=== PATIENT | male | born 1960 | race Caucasian/White ===

== ENCOUNTER → 2016-11-18 | Outpatient (CLI) | payer MEDICARE ==
[~2016-11-18] MED LIST: ASPIRIN EC81 MG PO; BRILINTA 90 MG90 MG PO; CARAFATE 1 GM TA1 GM PO; DEXILANT60 MG PO; FISH OIL 1,2001 EACH PO; HUMALOG100 UNIT/1 SC; IMDUR ER TAB 6060 MG PO; K-DUR TAB 20 M20 MEQ PO; LANTUS100 UNIT/1 SC; LASIX40 MG PO; LOPRESSOR 25 MG25 MG PO; MIRALAX17 GM PO; NEURONTIN 300300 MG PO; NITROGLYCERIN0.4 MG SL; NORVASC 5 MG TAB5 MG PO; OMEPRAZOLE40 MG PO; RANEXA1000 MG PO; SEN PO; VITAMIN D31000 UNI1 PO; ZANAFLEX4 MG PO; ZANTAC300 MG PO; ZESTRIL2.5 MG PO; [UNRECOGNIZED DRUG - OTHER] PO
== END ==
LOC: US 12:00
DX: N17.9 Acute kidney failure, unspecified (principal)

== ENCOUNTER 2020-09-08 19:59 | Emergency (ER) | payer MEDICARE ==
[~2020-09-08 19:59] MED LIST changes: +BACTRIM DS TAB1 EACH PO; +BENTYL 10MG CAP10 MG PO; +DESYREL 50 MG T50 MG PO; +DOCUSATE SODIU100 MG PO; +DOXEPIN HCL25 MG PO; +ELAVIL 25 MG TA25 MG PO; +FLONASE 0.05% N16 GM; +GAS RELIEF125 MG PO; +GAVISCON EXTRA355 ML PO; +LEVAQUIN500 MG PO; -NEURONTIN 300300 MG PO; +NEURONTIN 800 MG PO; +PEPTO-BISMOL262 MG PO; +SYNTHROID50 MCG PO; +TUMS200 MG PO; +TYLENOL 500 MG500 MG PO; +VESCEPA; +ZESTRIL10 MG PO; +ZITHROMAX250 MG PO; +ZOCOR10 MG PO
[2020-09-08 21:38] LABS: HEMOGLOBIN 11.7 gm/dl (14.0-17.5); RED BLOOD COUNT 3.54 M/UL (4.20-5.50); WHITE BLOOD COUNT 9.4 K/UL (4.5-11.0)
[2020-09-08 21:55] LABS: BUN/CREATININE RATIO 21 (0-10)
[2020-09-09] MEDS ORDERED: MYLANTA MAXIMU355 ML PO (00:13)
== END 2020-09-09 00:15 | disposition home or self-care (01) ==
LOC: ER1 19:59
PROVIDERS: Family Medicine
DX: I10 Essential (primary) hypertension (principal); R09.81 Nasal congestion; Z79.899 Other long term (current) drug therapy
CPT/HCPCS: 70220; 71046; 80053; 82550; 82553; 83874; 84484; 85025; 93005; 99284

== ENCOUNTER 2021-09-16 08:10 | Emergency (ER) | payer MEDICARE ==
[~2021-09-16 08:10] MED LIST changes: +MYLANTA MAXIMU355 ML PO
[2021-09-16 09:38] LABS: HEMOGLOBIN 12.9 gm/dl (14.0-17.5); RED BLOOD COUNT 4.15 M/UL (4.20-5.50); WHITE BLOOD COUNT 6.1 K/UL (4.5-11.0)
[2021-09-16 10:08] LABS: BUN/CREATININE RATIO 13 (0-10)
== END 2021-09-16 12:24 | disposition home or self-care (01) ==
LOC: ER1 08:10
PROVIDERS: Nurse Practitioner
DX: R07.89 Other chest pain (principal); E11.9 Type 2 diabetes mellitus without complications; Z79.4 Long term (current) use of insulin; I25.10 Atherosclerotic heart disease of native coronary artery without angina pectoris; I10 Essential (primary) hypertension; K21.9 Gastro-esophageal reflux disease without esophagitis; E11.40 Type 2 diabetes mellitus with diabetic neuropathy, unspecified; Z79.82 Long term (current) use of aspirin
CPT/HCPCS: 71045; 80048; 81001; 82550; 82553; 83874; 83880; 84484; 85025; 93005; 99285

== ENCOUNTER 2021-10-20 15:32 | Emergency (ER) | payer MEDICARE ==
[2021-10-20 17:50] LABS: HEMOGLOBIN 13.2 gm/dl (14.0-17.5); RED BLOOD COUNT 4.13 M/UL (4.20-5.50); WHITE BLOOD COUNT 7.1 K/UL (4.5-11.0)
[2021-10-20 18:33] LABS: BUN/CREATININE RATIO 13 (0-10)
[2021-10-20] MEDS ORDERED: XYLOCAINE VISC100 ML PO (19:16)
== END 2021-10-20 20:29 | disposition home or self-care (01) ==
LOC: ER1 15:32
PROVIDERS: Emergency Medicine
DX: K21.00 Gastro-esophageal reflux disease with esophagitis, without bleeding (principal); I10 Essential (primary) hypertension; E11.9 Type 2 diabetes mellitus without complications; Z95.5 Presence of coronary angioplasty implant and graft
CPT/HCPCS: 71045; 80053; 82550; 82553; 83874; 84484; 85025; 93005; 99285

== ENCOUNTER 2021-11-13 07:20 | Observation (INO) | payer MEDICARE ==
[~2021-11-13] VITALS: Ht 167.6 cm; Wt 151.5 kg
[~2021-11-13 07:20] MED LIST changes: -BENTYL 10MG CAP10 MG PO; -DEXILANT60 MG PO; -FLONASE 0.05% N16 GM; -GAS RELIEF125 MG PO; -GAVISCON EXTRA355 ML PO; -K-DUR TAB 20 M20 MEQ PO; +POTASSIUM CHLO20 ME1 PO; -TUMS200 MG PO; -TYLENOL 500 MG500 MG PO; -VESCEPA; +XYLOCAINE VISC100 ML PO; -ZANAFLEX4 MG PO
[2021-11-13] MEDS ORDERED: HUMALOG100 UNIT/1 SC (09:23)
[2021-11-13] MEDS ORDERED: GAS-X125 M1 PO (09:28)
[2021-11-13 09:43] LABS: HEMOGLOBIN 13.5 gm/dl (14.0-17.5); RED BLOOD COUNT 4.34 M/UL (4.20-5.50); WHITE BLOOD COUNT 6.4 K/UL (4.5-11.0)
[2021-11-13 10:16] LABS: BUN/CREATININE RATIO 11 (0-10)
[2021-11-13] MEDS ORDERED: ZANAFLEX4 MG PO (14:14)
[2021-11-13] MEDS ORDERED: CARAFATE1 GM/10 ML PO (15:23)
[2021-11-13] MEDS ORDERED: CATAPRES 0.1MG0.1 MG PO (15:33)
[2021-11-13] MEDS ORDERED: GABAPENTIN800 MG PO (15:34)
[2021-11-13] MEDS ORDERED: FAMOTIDINE40 MG PO (15:48)
[2021-11-13] MEDS ORDERED: XYZAL5 MG PO (15:52)
[2021-11-13] MEDS ORDERED: FLONASE 0.05% N16 GM (15:53)
[2021-11-13] MEDS ORDERED: 8 HOUR PAIN RE650 MG PO (15:54)
[2021-11-13] MEDS ORDERED: TUMS ULTRA400 MG PO (15:55)
[2021-11-13] MEDS ORDERED: GAVISCON EXTRA355 ML PO (15:57)
[2021-11-13] MEDS ORDERED: COLACE100 MG PO (16:46)
[2021-11-13] MEDS ORDERED: [UNRECOGNIZED DRUG - OTHER] TOP (16:47)
[2021-11-13] MEDS ORDERED: BENTYL 10MG CAP10 MG PO (17:04)
[2021-11-13] MEDS ORDERED: VASCEPA1 GM PO (17:06)
[2021-11-13] MEDS ORDERED: DEXILANT60 MG PO (20:59)
[2021-11-14 08:01] LABS: HEMOGLOBIN 12.8 gm/dl (14.0-17.5); RED BLOOD COUNT 4.06 M/UL (4.20-5.50); WHITE BLOOD COUNT 5.9 K/UL (4.5-11.0)
[2021-11-14 08:35] LABS: BUN/CREATININE RATIO 15 (0-10)
== END 2021-11-14 12:49 | disposition home or self-care (01) ==
LOC: ER1 07:20 → CDU 11:25 → PROG CARE 16:02
PROVIDERS: Physician Assistant; ADMIT Internal Medicine
DX: I25.110 Atherosclerotic heart disease of native coronary artery with unstable angina pectoris (principal); R10.13 Epigastric pain; E11.40 Type 2 diabetes mellitus with diabetic neuropathy, unspecified; K21.9 Gastro-esophageal reflux disease without esophagitis; I16.0 Hypertensive urgency; I10 Essential (primary) hypertension; E78.5 Hyperlipidemia, unspecified; G47.33 Obstructive sleep apnea (adult) (pediatric); I87.8 Other specified disorders of veins; E66.01 Morbid (severe) obesity due to excess calories; Z95.5 Presence of coronary angioplasty implant and graft; Z68.43 Body mass index [BMI] 50.0-59.9, adult; Z88.8 Allergy status to other drugs, medicaments and biological substances; Z79.82 Long term (current) use of aspirin; Z79.899 Other long term (current) drug therapy; Z20.822 Contact with and (suspected) exposure to COVID-19
CPT/HCPCS: 36415; 71045; 80048; 80053; 81001; 82550; 82553; 82962; 83690; 83735; 83880; 84484; 85025; 86140; 87040; 87086; 93005; 94660; 94760; 96365; 96374; 96375; 99152; 99153; 99285; C1769; C1887; C1894; G0378; J0696; J1644; J2250; J3010; J7040; Q9967; U0002

== ENCOUNTER 2022-03-18 04:22 | Inpatient (IN) | payer MEDICARE ==
[~2022-03-18] VITALS: Ht 167.6 cm; Wt 149.7 kg
[~2022-03-18 04:22] MED LIST changes: +8 HOUR PAIN RE650 MG PO; +BENTYL 10MG CAP10 MG PO; +CARAFATE1 GM/10 ML PO; +CATAPRES 0.1MG0.1 MG PO; +COLACE100 MG PO; +DEXILANT60 MG PO; +FAMOTIDINE40 MG PO; +FLONASE 0.05% N16 GM; +GABAPENTIN800 MG PO; +GAS-X125 M1 PO; +GAVISCON EXTRA355 ML PO; -IMDUR ER TAB 6060 MG PO; +ISOSORBIDE MONO60 MG PO; -LANTUS100 UNIT/1 SC; +LANTUS100 UNIT/1 SQ; +TUMS ULTRA400 MG PO; +VASCEPA1 GM PO; +XYZAL5 MG PO; +ZANAFLEX4 MG PO; +[UNRECOGNIZED DRUG - OTHER] TOP
[2022-03-18 04:37] LABS: HEMOGLOBIN 11.5 gm/dl (14.0-17.5); RED BLOOD COUNT 3.79 M/UL (4.20-5.50); WHITE BLOOD COUNT 6.9 K/UL (4.5-11.0)
[2022-03-18 04:58] LABS: BUN/CREATININE RATIO 19 (0-10)
[2022-03-18] MEDS ORDERED: FAMOTIDINE40 MG PO (11:13)
[2022-03-19 03:32] LABS: HEMOGLOBIN 12.1 gm/dl (14.0-17.5); RED BLOOD COUNT 4.03 M/UL (4.20-5.50); WHITE BLOOD COUNT 7.7 K/UL (4.5-11.0)
[2022-03-19 03:53] LABS: BUN/CREATININE RATIO 23 (0-10)
[2022-03-20 02:38] LABS: HEMOGLOBIN 11.2 gm/dl (14.0-17.5); RED BLOOD COUNT 3.7 M/UL (4.20-5.50); WHITE BLOOD COUNT 8.3 K/UL (4.5-11.0)
[2022-03-20 03:11] LABS: BUN/CREATININE RATIO 31 (0-10)
[2022-03-21 07:41] LABS: HEMOGLOBIN 11.9 gm/dl (14.0-17.5); RED BLOOD COUNT 4.04 M/UL (4.20-5.50); WHITE BLOOD COUNT 9.9 K/UL (4.5-11.0)
[2022-03-21 08:10] LABS: BUN/CREATININE RATIO 28 (0-10)
[2022-03-22 07:48] LABS: HEMOGLOBIN 11.7 gm/dl (14.0-17.5); RED BLOOD COUNT 3.89 M/UL (4.20-5.50)
[2022-03-22 08:12] LABS: BUN/CREATININE RATIO 26 (0-10)
[2022-03-22] MEDS ORDERED: ELIQUIS2.5 MG PO (16:07)
[2022-03-22] MEDS ORDERED: DOXYCYCLINE HY100 M2 PO (16:07)
[2022-03-22] MEDS ORDERED: IPRAT-ALBUT 0.5-3 ML NEB (16:07)
[2022-03-22] MEDS ORDERED: OMNICEF 300 MG300 MG PO (16:07)
[2022-03-22] MEDS ORDERED: DECADRON6 MG PO (16:07)
== END 2022-03-22 18:16 | disposition home or self-care (01) | DRG 177 ==
LOC: ER1 04:22 → CDU 05:32 → M/S 06:06 → CDU 06:06 → M/S 07:30
PROVIDERS: Family Medicine; Internal Medicine; ADMIT Internal Medicine
PROC: 8E0ZXY6 Isolation (ICD-10-PCS; principal; 2022-03-18)
PROC: XW033E5 Introduction of Remdesivir Anti-infective into Peripheral Vein, Percutaneous Approach, New Technology Group 5 (ICD-10-PCS; 2022-03-18)
PROC: 3E0333Z Introduction of Anti-inflammatory into Peripheral Vein, Percutaneous Approach (ICD-10-PCS; 2022-03-18)
PROC: 5A09357 Assistance with Respiratory Ventilation, Less than 24 Consecutive Hours, Continuous Positive Airway Pressure (ICD-10-PCS; 2022-03-19)
DX: U07.1 COVID-19 (principal); Z20.822 Contact with and (suspected) exposure to COVID-19; J12.82 Pneumonia due to coronavirus disease 2019; J96.21 Acute and chronic respiratory failure with hypoxia; J15.9 Unspecified bacterial pneumonia; E66.2 Morbid (severe) obesity with alveolar hypoventilation; Z68.43 Body mass index [BMI] 50.0-59.9, adult; E78.5 Hyperlipidemia, unspecified; E03.9 Hypothyroidism, unspecified; K59.00 Constipation, unspecified; J30.9 Allergic rhinitis, unspecified; E11.42 Type 2 diabetes mellitus with diabetic polyneuropathy; I25.10 Atherosclerotic heart disease of native coronary artery without angina pectoris; K21.9 Gastro-esophageal reflux disease without esophagitis; K58.9 Irritable bowel syndrome, unspecified; Z79.4 Long term (current) use of insulin; Z79.01 Long term (current) use of anticoagulants; Z95.5 Presence of coronary angioplasty implant and graft; Z98.42 Cataract extraction status, left eye; Z98.41 Cataract extraction status, right eye; Z90.49 Acquired absence of other specified parts of digestive tract; Z88.6 Allergy status to analgesic agent; Z88.8 Allergy status to other drugs, medicaments and biological substances; Z82.49 Family history of ischemic heart disease and other diseases of the circulatory system; Z83.3 Family history of diabetes mellitus; Z99.81 Dependence on supplemental oxygen
CPT/HCPCS: 36415; 36600; 71045; 80053; 82550; 82553; 82803; 82962; 83036; 83605; 83880; 84484; 85025; 85027; 85610; 86140; 93005; 94640; 94660; 94664; 94760; 96374; 96375; 99285; J0248; J0696; J1100; J1650; J2270; J7030; U0002

== ENCOUNTER → 2022-05-15 | Outpatient (CLI) | payer MEDICARE ==
[~2022-05-15] MED LIST changes: +DECADRON6 MG PO; +DOXYCYCLINE HY100 M2 PO; +ELIQUIS2.5 MG PO; +IPRAT-ALBUT 0.5-3 ML NEB; +OMNICEF 300 MG300 MG PO
== END ==
LOC: HEART 5 09:10
DX: R06.02 Shortness of breath (principal); I51.7 Cardiomegaly
CPT/HCPCS: 93306